=== PATIENT | male | born 1980 | race African-American/Black ===

== ENCOUNTER 2022-02-03 16:52 | Emergency (ER) | payer MEDICAID, OTHER ==
[~2022-02-03] VITALS: Ht 185.4 cm; Wt 65.1 kg
[2022-02-03 18:34] VITALS: BP 127/80
[2022-02-03] MEDS ORDERED: AMOX-277 PO (19:11)
[2022-02-03] MEDS ORDERED: IBUP800T27 PO (19:11)
[2022-02-03] MEDS ORDERED: CLINDAMYCIN 600MG IV 50 ML IV ONE (19:15)
[2022-02-03] MEDS ORDERED: KETOROLAC TROMETH 30 MG/ML 1ML VIAL IV ONE (19:15)
[2022-02-03] MEDS ORDERED: cefTRIAXone 1GM/50ML D5W 50 ML IV ONE (19:15)
[2022-02-03] MEDS ORDERED: BENZOCAINE (DENTAL) 20 % SPRAY 60ML MT ONE (19:15)
== END 2022-02-03 20:46 | disposition home or self-care (01) ==
LOC: ER 16:52
DX: K04.7 Periapical abscess without sinus (principal); F17.210 Nicotine dependence, cigarettes, uncomplicated; F12.10 Cannabis abuse, uncomplicated; Z88.6 Allergy status to analgesic agent; Z88.1 Allergy status to other antibiotic agents
CPT/HCPCS: 96365; 96368; 96375; 99284; J0696; J1885; J3490